=== PATIENT | female | born 1925 | race Caucasian/White ===

== ENCOUNTER → 2016-12-22 | Outpatient (CLI) | payer MEDICARE, OTHER ==
[2015-11-21 12:43] VITALS: BP 152/84
--- NOTE | 2016-12-22 11:01 | RAD ---
INDICATION:HTN COMPARISON: 08/16/2012 FINDINGS: Spectral Doppler, color and grayscale ultrasound images obtained of the kidneys and renal arteries. Right kidney 10 cm without hydronephrosis. The left kidney is obscured. Only portions of the renal arteries are visualized on this exam. Abdominal aorta peak systolic velocity 84 cm/S Right renal artery peak systolic velocity 128 cm/S. Right renal artery to aortic ratio 1.5. Left renal artery peak systolic velocity 109 cm/S. Left renal artery to aortic ratio 1.3. Portions of the renal arteries are not well seen. 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 IMPRESSION: Limited examination secondary to some of the intra-abdominal structures being obscured by overlying soft tissues but no definite hemodynamically significant stenosis is seen of the renal arteries on this exam.
== END | disposition home or self-care (01) ==
LOC: US 08:17
PROVIDERS: ATTEND Family Medicine
DX: I10 Essential (primary) hypertension (principal)
CPT/HCPCS: 93975